=== PATIENT | female | born 1990 | race Caucasian/White ===

== ENCOUNTER 2017-12-02 07:49 | Emergency (ER) | payer BC ==
[~2017-12-02] VITALS: Ht 160 cm; Wt 74.8 kg
[~2017-12-02 07:49] MED LIST: VITAFOL-OB+DHA1 EACH PO
[2017-12-02] MEDS ORDERED: NUVARING VAGIN1 EACH VAGINAL (08:15)
== END 2017-12-02 12:10 | disposition home or self-care (01) ==
LOC: ED 07:49
DX: R10.9 Unspecified abdominal pain (principal); Z79.899 Other long term (current) drug therapy
CPT/HCPCS: 74177; 80053; 81001; 84703; 85025; 96360; 96361; 99284; J7030; Q9967

== ENCOUNTER 2023-04-02 14:25 | Inpatient (IN) | payer OTHER ==
--- NOTE | ~2023-04-02 | OR ---
[address] [address] Draft DATE OF OPERATION: 04/14/2023 SURGEON: Stephan Rashid DO PREOPERATIVE DIAGNOSES: 1. Intrauterine at 39 weeks gestation. 2. History of prior section. 3. Desires opportunistic bilateral salpingectomy. POSTOPERATIVE DIAGNOSES: 1. Intrauterine at 39 weeks gestation. 2. History of prior section. 3. Desires opportunistic bilateral salpingectomy. PROCEDURES PERFORMED: 1. Repeat low transverse delivery. 2. Opportunistic bilateral salpingectomy. BILINGUAL CUSTOMER SERVICE SPECIALIST: Bertha Early MD. ANESTHESIA: Spinal with postoperative TAP block. ESTIMATED BLOOD LOSS: 600 mL. COMPLICATIONS: None. DRAINS: Condon to gravity. SPECIMEN: Cord blood for routine analysis. FINDINGS: Delivery of viable female , 7 pounds 6 ounces with Apgars of 9 and 9 born in the AL position over a repeat low transverse hysterotomy. Clear of amniotic fluid. Normal uterus, tubes, and ovaries with minimal to no scarring of the abdomen or pelvis. PATIENT NAME: JAVI CAREY OPERATIVE REPORT DATE OF : [birth year] REPORT #: [id number] PHYSICIAN: STEPHAN RASHID) PCP: STEPHIE FINLEY MD REPORT IS CONFIDENTIAL AND NOT TO BE RELEASED WITHOUT AUTHORIZATION [address] [address] Draft INDICATIONS: Ms. Carey is a very pleasant 33-year-old, G2, P1, with intrauterine at 39 weeks gestation, who presents for repeat low transverse delivery with opportunistic bilateral salpingectomy. Risks, benefits, and alternatives were discussed in detail with the patient. The patient understands and wishes to proceed with the procedure and reaffirms her request for opportunistic salpingectomy. PROCEDURE IN DETAIL: The patient was taken to the operating room where a time-out was performed to confirm correct patient and correct procedure. Spinal anesthesia was adequately established. The patient was prepped and draped in the supine position with a bump under the right hip. Condon catheter was inserted and no preoperative heparin was indicated. She did receive Ancef 2 g preoperatively per SCIP protocol. Once spinal was noted to be adequate, a Pfannenstiel skin incision was made using a surgical scalpel through her prior scar. This was carried down to the fascia. The fascia was nicked in the midline. Fascial incision was extended bilaterally using curved Warren scissors. Fascia was grasped with Popeye's, elevated, and the underlying rectus muscle dissected off bluntly and sharply. The rectus was divided in the midline with sharp and blunt dissection. The peritoneum was entered bluntly. Peritoneal incision was extended cephalad caudad using sharp and blunt dissection. No significant adhesions were noted in the pelvis. An Juan self retractor was placed. The lower uterine segment identified. Hysterotomy was performed using a surgical scalpel. Amnion was ruptured for clear fluid. The surgeon's hand was placed in the uterine cavity. The head elevated into the maternal abdomen delivered with the assistance of fundal pressure. Nuchal cord x1 was identified and reduced without difficulty and the remainder of the delivered easily with the assistance of fundal pressure. was vigorous and cried upon delivery. Cord was doubly clamped and cut and the handed to the waiting pediatric team for further care. Cord blood was obtained for routine analysis. The placenta was manually expressed, intact with a centrally inserted three-vessel cord. The uterus was cleared of any remaining products of conception of clot and hysterotomy was repaired in two layers of 0 Monocryl. The first being a running locked layer and the second being a running imbricating layer in the vertical manner. A small amount of oozing was noted in the midline of the hysterotomy and this was repaired with a [id number]-ya-hyuhl with excellent hemostasis. The pelvis was irrigated and found to be hemostatic. Attention was turned to the opportunistic bilateral salpingectomy. The patient again reaffirmed her desire for this procedure. The left fallopian tube was grasped with Fidel, elevated, and dissected along the mesosalpinx using LigaSure device with excellent hemostasis. The tube was amputated at the cornu. Excellent hemostasis of the mesosalpinx was appreciated. The process was repeated on the right side without difficulty. After ensuring hemostasis bilaterally, the uterus was returned to the abdomen. The Juan retractor was removed and the lower uterine segment PATIENT NAME: JAVI CAREY OPERATIVE REPORT DATE OF : [birth year] REPORT #: [id number] PHYSICIAN: STEPHAN RASHID (ANNIE) DO PCP: STEPHIE FINLEY MD REPORT IS CONFIDENTIAL AND NOT TO BE RELEASED WITHOUT AUTHORIZATION [address] [address] Draft identified and noted to be hemostatic. The peritoneum was reapproximated using 2-0 Vicryl in a running nonlocked manner. Rectus was made hemostatic with judicious use of Bovie electrocautery and plicated in the midline with #0 Vicryl. The fascia was reapproximated using 0 Vicryl in a running nonlocked manner. Subcu was made hemostatic with judicious use of Bovie electrocautery after irrigation and reapproximated with 3-0 Vicryl. The skin was reapproximated using surgical ema. The uterus was Crede'd for scant amount of blood and the patient remained in the OR for postoperative TAP block per Anesthesia. Sponge, needle, and instrument count were correct x2 at the end the procedure. Dr. Early was present and participated in all portions of the procedure. DO TIGRE Jimenez/MODL /[id number] Copies: ~ PATIENT NAME: JAVI CAREY OPERATIVE REPORT DATE OF : [birth year] REPORT #: [id number] PHYSICIAN: STEPHAN RASHID DO (JD) PCP: STEPHIE FINLEY MD REPORT IS CONFIDENTIAL AND NOT TO BE RELEASED WITHOUT AUTHORIZATION
[~2023-04-02 14:25] MED LIST changes: +NUVARING VAGIN1 EACH VAGINAL
[2023-04-14 06:01] LABS: AMPHETAMINES, URINE NEGATIVE (NEGATIVE); BARBITURATES, URINE NEGATIVE (NEGATIVE); BENZODIAZEPINE, URINE NEGATIVE (NEGATIVE); BUPRENORPHINE, URINE NEGATIVE (NEGATIVE); CANNABINOID, URINE NEGATIVE (NEGATIVE); COCAINE, URINE NEGATIVE (NEGATIVE); ECSTASY, URINE NEGATIVE (NEGATIVE); FENTANYL, URINE NEGATIVE (NEGATIVE); METHADONE, URINE NEGATIVE (NEGATIVE); OPIATES, URINE NEGATIVE (NEGATIVE); OXYCODONE, URINE NEGATIVE (NEGATIVE); PHENCYCLIDINE, URINE NEGATIVE (NEGATIVE)
[2023-04-14 06:19] VITALS: BP 116/77
[2023-04-14 06:20] LABS: HEMATOCRIT 37.1 % (35.0-50.0); HEMOGLOBIN 12.9 g/dL (12.0-18.0); MCH 31.4 (27-36); MCHC 34.7 g/dl (30-36); MCV 90.6 fl (81-99); RBC 4.09 M/ul (4.3-5.7); RDW 13.1 (10.5-15.0)
[2023-04-14 06:52] LABS: ABO O
[2023-04-14 06:53] LABS: ANTIBODY SCREEN NEGATIVE; RH POSITIVE
[2023-04-14 09:05] VITALS: BP 107/63
--- NOTE | 2023-04-14 09:13 | NUR ---
04/14/23 0914 Sheba Devine 0834- PT ARRIVES TO ROOM 105 IN [facility]. PT IS ALERT AND ANSWERS QUESTIONS APPROPRIATELY. GOTTLIEB CATHETER IN PLACE DRAINING CLEAR YELLOW URINE. PT DENIES PAIN AND NAUSEA. LR WITH 20 UNITS OF PITOCIN INFUSING TO 20G IV TO RH. DRESSING IN PLACE TO LOW ABD, CDI. BREATHING EVEN AND NON LABORED, DENIES SOB. MONITORS IN PLACE. 0850- NO CHANGE IN PT STATUS, PT SEMI REYES POSITION. DENIES PAIN AND NAUSEA. NO DIZZINESS. VITAL SIGNS STABLE. LR WITH 20 UNITS OF PITOCIN INFUSING. NICOLE BROWN AT BEDSIDE, ASSISTING TO LATCH BABY TO BREAST. REPORTS AT BEDSIDE, ICE WATER PROVIDED. CARE OF PT TURNED OVER AT THIS TIME.
[2023-04-15 05:16] LABS: MCH 31.1 (27-36); MCHC 34.4 g/dl (30-36); MCV 90.4 fl (81-99); RBC 3.53 M/ul (4.3-5.7); RDW 12.9 (10.5-15.0)
--- NOTE | 2023-04-16 11:25 | PR ---
[facility] [address] [facility] [place], [place] [address] Signed PP Progress Notes Datetime Report Generated by CPN: 04/16/2023 11:24 SUBJECTIVE: [id number] Pain: Within Normal Limits Nausea/Vomiting: Denies Flatus: Yes Bowel Movement: No Vital Signs: [id number] Vital Signs: Reviewed; Within Normal Limits Cardiovascular: Normal Respiratory: Normal Abdomen/Uterus: Normal Lochia: Normal Vulva/Perineum: Not Done Breasts: Not Done CVA Tenderness: Normal Extremities: Normal Incision: Normal Progress: Normal Exam Comments: Fundus firm U-2 Incision healing well w/ ema in place IMPRESSION/PLAN/PROCEDURES: [id number] Impression: Normal Progression Plan: Discharge Procedures: None Progress Notes: Pt seen and examined. Doing well. Ambulating, voiding, and tolerating full diet. Pain and lochia minimal. . No fevers/chills. Edmond out early next week in the office. S/P bilateral salpingectomy for contraception. Reviewed instructions in detail. All questions answered. Signing Physician: Stephan Rashid DO Copies: ~ *Electronically Signed* 04/16/23 1124 STEPHAN RASHID (ANNIE) DO PATIENT NAME: JAVI CARPIO PROGRESS NOTE DATE OF : [birth year] PHYSICIAN: STEPHAN RASHID (JD) DO RPT #: [id number] REPORT IS CONFIDENTIAL AND NOT TO BE RELEASED WITHOUT AUTHORIZATION
--- NOTE | 2023-04-16 11:45 | PATH ---
[facility] [address], [place] [address] Signed SPECIMEN(S): A FALLOPIAN TUBES, BILATERAL SPECIMEN SOURCE: A. FALLOPIAN TUBES, BILATERAL FINAL PATHOLOGIC DIAGNOSIS: Fallopian tubes, bilateral, salpingectomy: - Fimbriated fallopian tube segments (two) with no significant pathologic changes BRP MICROSCOPIC EXAMINATION: Histologic sections of all submitted blocks are examined by light microscopy. These findings, together with the gross examination, support the pathologic diagnosis. GROSS DESCRIPTION: The specimen, labeled and designated "Miura, bilateral fallopian tubes," is received in formalin and consists of two undesignated fallopian tubes. Both show fimbria and violaceus and smooth serosa. The first tube measure 7.5 x 0.7 cm. The second fallopian tube measure 7.0 x 0.7 cm. Sectioning through both fallopian tubes is grossly unremarkable. Cassette Summary: (A1) first fallopian tube, livestock sales representative sections (A2) second fallopian tube, livestock sales representative sections JS (under the direct supervision of a pathologist) The Gross Description was prepared using a voice recognition system. The report was reviewed for accuracy; however, sound-alike word errors, addition and/or deletions may occur. If there is any question about this report, please contact Client Services. ADDITIONAL NOTES: Immunohistochemical and/or in situ hybridization studies if performed in this case included appropriate positive controls that reacted as expected. This test was developed and its performance characteristics determined by [facility]. It has not been cleared or approved by the U.S. Food and Drug Administration. The FDA has determined that such clearance or approval is not necessary. This test is used for clinical purposes. It should not be regarded as investigational or for research. [facility] is certified under the Clinical Laboratory Improvement PATIENT NAME: JAVI CARPIO PATHOLOGY DATE OF : [birth year] REPORT #: [id number] PHYSICIAN: FLORIAN PATHOLOGY PCP: STEPHIE FINLEY MD REPORT IS CONFIDENTIAL AND NOT TO BE RELEASED WITHOUT AUTHORIZATION [facility] [address] [place] [facility] [place], [place] [address] Signed Amendments of 1988 (CLIA) as qualified to perform high complexity clinical laboratory testing. PERFORMING LABORATORY: Technical component was performed by [facility], [address] [place] [address] (CLIA# [id number]). Professional interpretation was performed by [facility] - [facility], [facility] [address] [address] (CLIA#:[id number]). Diagnostician: Jignesh Burks MD Pathologist Electronically Signed 04/16/2023 Copies: ~ PATIENT NAME: JAVI CARPIO PATHOLOGY DATE OF : [birth year] REPORT #: [id number] PHYSICIAN: FLORIAN PATHOLOGY PCP: STEPHIE FINLEY MD REPORT IS CONFIDENTIAL AND NOT TO BE RELEASED WITHOUT AUTHORIZATION
== END 2023-04-16 12:20 | disposition home or self-care (01) | DRG 785 ==
LOC: FBC 04-13 07:30
PROVIDERS: ADMIT Obstetrics & Gynecology; ATTEND Obstetrics & Gynecology
PROC: 10D00Z1 Extraction of Products of Conception, Low, Open Approach (ICD-10-PCS; principal; 2023-04-14 07:30)
PROC: 0UB70ZZ Excision of Bilateral Fallopian Tubes, Open Approach (ICD-10-PCS; 2023-04-14 07:30)
DX: O34.211 Maternal care for low transverse scar from previous cesarean delivery (principal); Z3A.39 39 weeks gestation of pregnancy; Z37.0 Single live birth; O69.81X0 Labor and delivery complicated by cord around neck, without compression, not applicable or unspecified; O99.892 Other specified diseases and conditions complicating childbirth; M54.9 Dorsalgia, unspecified; Z30.2 Encounter for sterilization
CPT/HCPCS: 36415; 76942; 80307; 85027; 86850; 86900; 86901; A9270; J0131; J0690; J1100; J1650; J1885; J2001; J2371; J2405; J2590; J2795; J3010; J7121

== ENCOUNTER 2024-06-16 09:55 | Observation (INO) | payer OTHER ==
[~2024-06-16] VITALS: Ht 160 cm; Wt 86.2 kg
[2024-06-16 10:35] LABS: BILIRUBIN, URINE NEGATIVE (negative); BLOOD/HGB, URINE NEGATIVE (Negative); KETONE, URINE SMALL (Negative); LEUK ESTERASE, URINE NEGATIVE (negative); NITRITE, URINE NEGATIVE (negative)
[2024-06-16] MEDS ORDERED: ondansetron HCL 4 MG/2 ML VIAL IV ONE (10:45)
[2024-06-16 11:10] LABS: BASOPHILS 0.4 % (0-2); EOSINOPHILS 0.1 % (0-6); HEMATOCRIT 37.8 % (35.0-50.0); LYMPHOCYTES 9.1 % (24-44); MCH 30.1 (27-36); MCHC 34.4 g/dl (30-36); MCV 87.6 fl (81-99); MONOCYTES 4.6 % (0-12); NEUTROPHILS 85.8 % (39-80); PLATELET COUNT 209 K/uL (140-440); RBC 4.31 M/ul (4.3-5.7); RDW 12.8 (10.5-15.0)
[2024-06-16] MEDS ORDERED: DICYCLOMINE HCL 20 MG/2 ML VIAL IM ONE (11:15)
[2024-06-16] MEDS ORDERED: MAGNESIUM HYDROXIDE/AL HYDROX 30 ML CUP PO ONE (11:15)
[2024-06-16] MEDS ORDERED: MORPHINE SULFATE 4 MG/ML VIAL IV ONE ×2 (11:30→13:30)
[2024-06-16] MEDS ORDERED: SODIUM CHLORIDE 0.9% 1,000 ML IV PRN (11:30)
[2024-06-16 11:31] LABS: ALBUMIN/GLOBULIN RATIO 1.25 (1.1-2.4); ANION GAP 13.5 (7-21); BILIRUBIN, TOTAL 0.4 mg/dL (0.2-1.0); BUN/CREATININE RATIO 31.37 (6.0-28.6); CALCIUM 8.5 mg/dL (8.5-10.1); CREATININE, SERUM 0.51 mg/dL (0.55-1.02); POTASSIUM 3.5 mmol/L (3.5-5.1); PROTEIN, TOTAL 7.2 g/dL (6.4-8.2)
[2024-06-16] MEDS ORDERED: CEFAZOLIN SODIUM 2 GM/20 ML SYR IV ONE (13:00)
[2024-06-16] MEDS ORDERED: LACTATED RINGER'S 1,000 ML IV SCH ×2 (13:00→14:45)
[2024-06-16] MEDS ORDERED: metroNIDAZOLE/SODIUM CHLORIDE 500 MG/100 ML PIGGYBACK IV ONE (13:00)
[2024-06-16] MEDS ORDERED: ondansetron HCL 4 MG/2 ML VIAL ONE (14:16)
[2024-06-16] MEDS ORDERED: DEXAMETHASONE SOD PHOS 4 MG/ML VIAL ONE (14:16)
[2024-06-16] MEDS ORDERED: propofoL 200 MG/20 ML VIAL ONE (14:16)
[2024-06-16] MEDS ORDERED: MIDAZOLAM HCL 2 MG/2 ML VIAL ONE (14:16)
[2024-06-16] MEDS ORDERED: fentaNYL citrate 100 MCG/2 ML VIAL ONE (14:16)
[2024-06-16] MEDS ORDERED: SUGAMMADEX SODIUM 200 MG/2 ML ML ONE (14:16)
[2024-06-16] MEDS ORDERED: KETOROLAC TROMETHAMINE 30 MG/ML VIAL ONE (14:16)
[2024-06-16] MEDS ORDERED: ROCURONIUM BROMIDE 50 MG/5 ML SYR ONE (14:16)
[2024-06-16] MEDS ORDERED: LIDOCAINE HCL 2% 5 ML SDV ONE (14:19)
[2024-06-16] MEDS ORDERED: FAMOTIDINE 20 MG/ 2 ML VIAL IV SCH (14:37)
[2024-06-16] MEDS ORDERED: KETOROLAC TROMETHAMINE 30 MG/ML VIAL IV PRN (14:45)
[2024-06-16] MEDS ORDERED: ondansetron HCL 4 MG/2 ML VIAL IV PRN ×2 (14:45→15:00)
[2024-06-16] MEDS ORDERED: IBLOOD GLUCOSE TEST STRIP 1 EA TEST VI PRN (15:00)
[2024-06-16] MEDS ORDERED: fentaNYL citrate 50 MCG/ML SDV IV PRN (15:00)
[2024-06-16] MEDS ORDERED: MIDAZOLAM HCL 2 MG/2 ML VIAL IV PRN (15:00)
[2024-06-16] MEDS ORDERED: NALOXONE HCL 0.4 MG SYR IV PRN (15:00)
[2024-06-16] MEDS ORDERED: HYDROmorphone HCL 1 MG/ML SYR IV PRN (15:00)
--- NOTE | 2024-06-16 15:08 | NUR ---
LEFT HAND IV REMOVE, PT REPORTS PAIN AND SMALL AMOUNT OF SWELLING NOTED TO LEFT HAND. ULTRASOUND IV PLACED IN RIGHT FOREARM 20G X 2 INCH. PT DENIES CONCERNS.
--- NOTE | 2024-06-16 15:26 | NUR ---
UR CLINICAL REVIEW: MIGUEL (ENCOUNTER DISCHARGED 06/16/24), MEETS OBS FOR APPENDICITIS POSTIVE CT, IV ANTIBIOTICS, IV FLUIDS, IV ANALGESICS [facility] OBS 06/16/2024 @ 1437 ORDER MATCHES REG AUTH PENDING. WILL SEND CLINICALS. PLAN TO DC TO HOME WHEN MEDICALLY CLEARED. 06/17/2024
--- NOTE | 2024-06-16 16:36 | NUR ---
06/16/24 1636 Irene López 1615-PT ARRIVES TO PACU VIA STRETCHER, PT LAYING SEMI FOWLERS, PT SHAKING, UNABLE TO OBTAIN BP ALL VSS ON 6L VIA MASK AND OPA IN PLACE, RR EVEN AND UNLABORED. 1616-PT AWAKENS ON OWN, DISORIENTED BUT ABLE TO FOLLOW COMMANDS, OPA REMOVED. VSS ON 6L VIA MASK. PT RESTING W/ EYES CLOSED, RR EVEN AND UNLABORED. 1625-PT TITRATED TO RA, VS REMAIN STABLE, PT DENIES PAIN OR NAUSEA. 1630- AT BEDSIDE TO DISCUSS PROCEDURE RESULTS AND PLAN OF CARE W/ PT, ALL QUESTIONS ANSWERED. PT DENIES PAIN OR NAUSEA. SHAKINESS HAS IMPROVED, VERY MINIMAL.
[2024-06-16] MEDS ORDERED: ACETAMINOPHEN 500 MG TAB PO PRN (16:45)
[2024-06-16] MEDS ORDERED: IBUPROFEN 600 MG TAB PO PRN (16:45)
[2024-06-16] MEDS ORDERED: OXYCODONE/APAP 7.5/325 TAB PO PRN (16:45)
--- NOTE | 2024-06-16 16:45 | NUR ---
PT ARRIVES TO FLOOR IN STRETCHER WITH [facility] RN. PT TRANSFERS VIA DRAW SHEET INTO HOSPITAL BED. VS AND WT OBTAINED. PT REQUESTING TO USE THE RESTROOM. THIS RN AND STEPHANIE KELLER ASSIST PT TO SIT ON EDGE OF BED AND AMBULATE TO RESTROOM. PT REPORTS BRIEF EPISODE OF NAUSEA, AND QUICKLY RECOVERS. PT TOLERATES AMBULATING WELL. PT SITTING ON TOILET, EDUCATED ON USING CALL CORD, VERBALIZES UNDERSTANDING. PT DB ALSO REMAINS WITH PT IN RESTROOM.
[2024-06-16 16:58] VITALS: BP 107/66
[2024-06-16] MEDS ORDERED: CYCLOBENZAPRINE10 MG PO (17:17)
[2024-06-16] MEDS ORDERED: MELOXICAM15 MG PO (17:23)
--- NOTE | 2024-06-16 17:42 | NUR ---
ADMISSION COMPLETE. PT PREVIOUSLY RETURNED TO BED AFTER SMALL VOID. SCDs IN PLACE, IVF INFUSING TO R FOREARM WNL. PT LUNG SOUNDS CLEAR THROUGHOUT, HEART SOUNDS REGULAR. BOWEL TONES ACTIVE IN ALL FOUR QUADRANTS, ABDOMEN IS MILDLY DISTENDED AND TENDER TO RLQ. PT REPORTS PAIN IS 6/10, PRN PAIN MEDICATION ADMINISTERED. PT DRINKS ICE WATER AND EATS A FEW SALTINE CRACKERS. TOLERATES WELL. PT REPORTS SHE FEELS THOUGH SHE COULD VOID AGAIN. PT TO EDGE OF BED AND AMBULATING WITH SBA ONLY. PT STEADY ON HER FEET, FULLY ALERT AND ORIENTED. PT AMBULATES WITH IV PUMP TO RESTROOM AND ON TO TOILET TO VOID. PT EDUCATED MODERN GREEK STUDIES PROFESSOR CORD USE, VERBALIZES UNDERSTANDING, PTs REMAINS PRESENT IN ROOM.
[2024-06-16 17:59] VITALS: BP 114/70
[2024-06-16] MEDS ORDERED: SEVOFLURANE 250 ML BTL INH ONE (18:05)
[2024-06-16 18:07] VITALS: BP 114/70
--- NOTE | 2024-06-16 18:07 | NUR ---
PT RESTING IN BED. VITALS AND I'S AND O'S COMPLETE. PT S/O AT BEDSIDE. PT VOIDED 300 ML OF CLEAR, YELLOW URINE. PT ICE WATER REFRESHED. PT DENIES ANY NEEDS. CALL LIGHT IN REACH
[2024-06-16] MEDS ORDERED: IBUPROFEN600 MG PO (18:44)
[2024-06-16] MEDS ORDERED: ACETAMINOPHEN500 MG PO (18:45)
[2024-06-16] MEDS ORDERED: ONDANSETRON ODT8 MG PO (18:45)
[2024-06-16] MEDS ORDERED: OXYCODON-ACETA1 EAC2 PO (18:45)
[2024-06-16 18:53] VITALS: BP 113/65
--- NOTE | 2024-06-16 18:54 | NUR ---
VS TAKEN AND RECORDED. PT REQUESTING TO USE RESTROOM. UNHOOKED FROM SCDs AND CPOX, IV POLE UNPLUGGED. PT AMBULATES INDEPENDENTLY INTO RESTROOM. PT VERBALIZES UNDERSTANDING OF HOW TO USE CALL CORD IF NEEDED.
--- NOTE | 2024-06-16 19:25 | NUR ---
REPORT REC'D FROM STEPHANIE LEON. PT RESTING COMFORTABLY IN BED, SPOUSE AT BEDSIDE. PT REPORTS PAIN TO RUQ, ENCOURAGED AMBULATION AND POSITION CHANGES. CALL VILLA IN REACH, BED IN LOW POSITION AND LOCKED, SIDERAILS UP X2, IV SITE PATENT,LR INFUSING AT 85ML/HR
[2024-06-16] MEDS ORDERED: FAMOTIDINE 20 MG TAB PO SCH (21:00)
[2024-06-16 21:32] VITALS: BP 105/58
--- NOTE | 2024-06-16 21:34 | NUR ---
IMMIGRATION PARALEGAL OBTAINED VITALS AND I&O. PT STATES NO NEEDS AT THIS TIME. PROVIDED WITH BLANKETS AND PILLOW FOR COUCH. PT CALL LIGHT WITHIN REACH.
[2024-06-16] MEDS ORDERED: metroNIDAZOLE/SODIUM CHLORIDE 500 MG/100 ML PIGGYBACK IV SCH (22:00)
[2024-06-16] MEDS ORDERED: CEFAZOLIN SODIUM 2 GM/20 ML SYR IV SCH (22:00)
[2024-06-16 22:17] VITALS: BP 105/58
--- NOTE | 2024-06-16 23:05 | NUR ---
PT RESTING QUIETLY. SPOUSE ON SOFA BED. CALL VILLA IN REACH, BED LOW POSITION, SR UP X2. NO ACUTE DISTRESS NOTED
--- NOTE | 2024-06-17 00:16 | NUR ---
PT PLEASANT AND COOPERATIVE WITH CARE T/O SHIFT. MEDICATED X1 FOR PAIN. PT NOTED UP AND AMBULATING WITH SPOUSE. PT ANTICIPATED TO DC IN AM. CALL VILLA IN REACH, BED LOW POSITION, SIDERAILS UP X 2
[2024-06-17 01:44] VITALS: BP 94/56
--- NOTE | 2024-06-17 01:44 | NUR ---
GOT REPORT FROM LINE SERVICE SUPERVISOR NURSE.
--- NOTE | 2024-06-17 01:53 | NUR ---
MEAT COUNTER CLERK OBTAINED VITALS AND I&O. PT UP TO BATHROOM. OUTPUT NOTED. PT BACK IN BED AND STATES NO FURTHER NEEDS AT THIS TIME. CALL LIGHT WITHIN REACH.
--- NOTE | 2024-06-17 02:07 | NUR ---
INTO CHECK ON PATIENT. SHE IS AWAKE SHE FELT SHE SLEPT VERY HARD AT FIRST AND WOKE UP HOT AND HASNT BEEN ABLE TO GO BACK TO SLEEP YET. DENIES NEEDING A FAN. PAIN CONTROLLED. ICE GIVEN IN WATER CUP. AT BED SIDE. CALL LIGHT WITHIN REACH. PATIENT WATCHING TV. PATIENT HAS IV FLUIDS RUNNING. BED IN LOW POSITION. DENIES ANY OTHER NEEDS AT THIS TIME.
--- NOTE | 2024-06-17 03:23 | NUR ---
PATIENT IS CURRENTLY ASLEEP ON HER BACK. REGULAR RESPIRATIONS AND RATE NOTED.
[2024-06-17 05:41] VITALS: BP 110/67
[2024-06-17 05:45] VITALS: BP 110/67
--- NOTE | 2024-06-17 05:45 | NUR ---
PATIENT ANTIBIOTICS ARE RUNNING VIA IV. PATIENT IS AWAKE AND READY TO GO HOME WHEN SHE CAN. PAIN MEDICATION GIVEN PATIENT 07/29 AND WILL BE GETTING UP AND MOVING AROUND MORE THIS MORNING TO GO HOME. BOYFRIEND AT BEDSIDE. TV ON,CALL LIGHT WITHIN REACH. DENIES ANY FURTHER NEEDS AT THIS TIME.
--- NOTE | 2024-06-17 07:20 | NUR ---
pt resting in bed. present at bedside. pt denies further needs at this time. call light in reach.
--- NOTE | 2024-06-17 07:51 | NUR ---
RECEIVED REPORT FROM NIGHT RN. PT RESTING WHEN ENTERED ROOM, SLEEPING ON COUCH. IV FLUIDS INFUSING, PT SALINE LOCKED THIS MORNING. PAIN IS CONTROLLED SHE STATES NOW AT 4, DID HAVE ALITTLE NAUSEA WITH TAKING MEDS ON EMPTY STOMACH, WAS ALREADY GIVEN SALTINE CRACKS, RYANNE GIVEN THIS MORNING WELL. LAP SITES HAVE SCANT DRAINAGE, BUT INTACT. BT+, PT REPORTS PASSING SOME FLATUS THROUGHOUT NIGHT AND IN THE MORNING. ALL PT CARE NEEDS MET, CALL LIGHT WITHIN REACH. PT WOULD LIKE TO DISCHARGE AFTER BREAKFAST THIS MORNING. PHARMACY NOTIFIED SO THEY CAN REVIEW MEDS WITH PATIENT. DISCHARGE INSTRUCTIONS REVIEWED WITH PATIENT, ADVISED ALSO TO MAKE SURE SHE TAKES SOMETHING FOR BOWELS IF SHE IS GOING TO TAKE HER NARCOTICS FOR PAIN TO PREVENT CONSTIPATION. ALSO IN ROOM WHEN REVIEWED DISCHARGE INSTRUCTIONS, NO LIFTING OVER 20LBS. UNDERSTANDS AND PT VERBALIZES INSTRUCTIONS.
--- NOTE | 2024-06-17 08:13 | NUR ---
PT STATE THE PAIN MEDS DONT MAKE HER FEEL GOOD, ALITTLE NAUSEATED BUT MORE A FUNNY FEELING, SHE WAS INSTRUCTED SHE CAN ALWAYS CUT THEM IN HALF AND TAKE 1/2 THE DOSE IF IT IS TOO MUCH. TAKING IT ALONG WITH IBUPROFEN/TYLENOL CAN HELP TAKE THE EDGE OFF THE PAIN. PT UNDERSTANDS AND AGREES.
--- NOTE | 2024-06-17 08:54 | NUR ---
PT IN BED EATING MEAL. AT BEDSIDE. PT ASKING WHEN PHARMACY IS COMING IN. RN NOTIFIED. DENIES FURTHER NEEDS. CALL LIGHT IN REACH
[2024-06-17 09:10] VITALS: BP 104/65
--- NOTE | 2024-06-18 12:30 | OR ---
[facility] [address] [place], [place] [address] Signed DATE OF OPERATION: 06/16/2024 SURGEON: Nayely Hadley MD PREOPERATIVE DIAGNOSIS: Acute suppurative appendicitis. POSTOPERATIVE DIAGNOSIS: Acute suppurative appendicitis. PROCEDURE: Laparoscopic appendectomy. ANESTHESIA: General endotracheal; Savannah Carmen CRNA and local 0.25% Marcaine with epinephrine 10 mL. INDICATION: This 34-year-old white woman is seen through the emergency room with complaints of lower pelvic pain. Pain began earlier in the day today beginning in the mid abdomen and now more in the pelvis and more dominantly on the right side. Clinical examination shows white count of 11.6. CT scan shows findings highly suggestive of acute appendicitis. She has been fluid resuscitated, given intravenous antibiotic Ancef and Flagyl and now to undergo appendectomy preferred by a laparoscopic approach. The risk of bleeding, infection, need for open procedure and other unforeseen complications related to appendectomy were reviewed with her. She understands and wished to proceed. FINDINGS: Indeed suppurative appendicitis was noted. The ileum was normal. The gallbladder was normal as was the liver. Appendectomy was performed without problem. She tolerated the procedure well. DESCRIPTION OF PROCEDURE: The patient was brought to the operating room and given a general endotracheal anesthetic. Preoperative antibiotic Ancef and Flagyl had been given already. Sequential compression device stockings were used. After satisfactory general endotracheal anesthesia, the abdomen was prepared with a chlorhexidine solution and draped sterilely. An infraumbilical incision was made and using open Jaiden cannula technique pneumoperitoneum was achieved to a level of 14 mmHg of carbon dioxide gas. Intra-abdominal inspection showed no sign of ascites or carcinomatosis. The appendix Electronically Signed By: NAYELY HADLEY MD 06/18/24 1230 PATIENT NAME: JAVI CARPIO OPERATIVE REPORT DATE OF : [birth year] REPORT #: [id number] PHYSICIAN: NAYELY HADLEY MD PCP: STEPHIE FINLEY MD REPORT IS CONFIDENTIAL AND NOT TO BE RELEASED WITHOUT AUTHORIZATION [facility] [address] [place], [place] [address] Signed was not initially visualized. The gallbladder appeared normal. The liver was normal. An additional 12 mm epigastric port was placed and camera replaced to that site. On single hand manipulation, the cecum was easily rolled over showing a suppurative appendix. The antimesenteric fat pad of Treves and terminal ileum all appeared normal. The right lower quadrant 5 mm port was placed and using two hand manipulation, the appendix could be defined from the surrounding tissue. It appeared to be somewhat fused posteriorly and anteriorly. The fusion site was incised with blunt and electrocautery dissection ultimately creating a window between the appendix and the cecum. Using an Endo-AMELIA stapling device, the appendix was transected flushed with the cecum. Further manipulation allowed for isolation of the appendiceal pedicle in the appendiceal mesentery. This was ultimately secured with a stapling device as well. The appendix was placed in an endobag and extracted through the infraumbilical port site. Examination of the staple line showed it to be hemostatic. Irrigation was undertaken and once the irrigation fluid was clear, inspection was undertaken showing no sign of bleeding or other problem. The trocars were removed under direct visualization showing no sign of bleeding. The infraumbilical fascial incision was reapproximated with interrupted 0 Vicryl suture. 10 mL of 0.25% Marcaine with epinephrine was injected locally. The skin was closed with interrupted 3-0 Vicryl. Steri-Strips were applied. She was ultimately extubated and transferred to the recovery room in good condition having suffered no complication. Sponge, needle, and instrument counts reported as correct x3. MD ENMANUEL Mendez/LYNETTEL /[id number] cc: . Copies: ~ Electronically Signed By: NAYELY HADLEY MD 06/18/24 1230 PATIENT NAME: JAVI CARPIO OPERATIVE REPORT DATE OF : [birth year] REPORT #: [id number] PHYSICIAN: NAYELY HADLEY MD PCP: STEPHIE FINLEY MD REPORT IS CONFIDENTIAL AND NOT TO BE RELEASED WITHOUT AUTHORIZATION
--- NOTE | 2024-06-18 12:30 | HP ---
[facility] [address], [place] [address] Signed ADMISSION DATE: 06/16/2024 REASON FOR ADMISSION: Probable appendicitis. HISTORY OF PRESENT ILLNESS: This 34-year-old white woman is accompanied by her fiance. She presents to the emergency room where she was evaluated by Dr. Mckenzie with complaints of abdominal pain. A CT scan of the abdomen was performed which shows high probability of acute appendicitis. Clinical examination is supportive of that as well. Her symptoms began this morning, mostly in the mid abdomen, now in the lower abdomen most dominantly in the right lower quadrant. She has had associated nausea. No actual vomiting. PAST MEDICAL HISTORY: Notable for x2. MEDICATIONS: She takes no medications on a routine basis. She does take control method (NuvaRing vaginal). 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 REVIEW OF SYSTEMS: She denies any shortness of breath or chest pain. She had no dysphagia or dysuria. Pain is mostly in the lower abdomen, poorly localized but predominantly on the right side. PHYSICAL EXAMINATION: GENERAL: Pleasant white woman who looks to be nontoxic. VITAL SIGNS: Temperature is 98.4, pulse 77, respirations 16, blood pressure 120/74. NECK: Trachea is midline. Mucous membranes reasonably moist. CHEST: Clear. HEART: Regular without murmur. ABDOMEN: Nondistended. Rovsing sign is positive. There is tenderness at McBurney's point, which is significant. EXTREMITIES: Show no clubbing, cyanosis, or edema. Electronically Signed By: NAYELY HADLEY MD 06/18/24 1230 PATIENT NAME: JAVI CARPIO HISTORY AND PHYSICAL DATE OF : [birth year] REPORT #: [id number] PHYSICIAN: NAYELY HADLEY MD PCP: STEPHIE FINLEY MD REPORT IS CONFIDENTIAL AND NOT TO BE RELEASED WITHOUT AUTHORIZATION [facility] [address], [place] [address] Signed LABORATORY DATA: Lab studies shows white count of 11.7, hematocrit 37.8, platelets 209,000 Chem profile is essentially normal, creatinine 0.51. Liver enzymes are normal. Beta HCG is negative. UA showed small amount of ketones, otherwise normal. I have reviewed the CT scan in detail. I cannot discern the appendix necessarily. The patient has been given Flagyl and Ancef antibiotics at this time. ASSESSMENT: The patient has acute appendicitis based on clinical and radiographic criteria. I discussed the pathophysiology of this problem with the patient and her fiance who attends to her. I have recommended a laparoscopic appendectomy, possible open procedure. I did discuss nonoperative methods which I would not be in favor of due to the high rate of recurrence. They were discussed, however. She would prefer an operative approach as well. PLAN: We will schedule for laparoscopic appendectomy today. Depending on findings, and so forth of the indicated procedure may be required including ovarian cystic resection, etc. Her last menstrual period was over a week ago and I think the chance of the cyst is quite low. MD ENMANUEL Mendez/LYNETTEL /[id number] cc: Dr. Magaly Che Copies: ~ Electronically Signed By: NAYELY HADLEY MD 06/18/24 1230 PATIENT NAME: JAVI CARPIO HISTORY AND PHYSICAL DATE OF : [birth year] REPORT #: [id number] PHYSICIAN: NAYELY HADLEY MD PCP: STEPHIE FINLEY MD REPORT IS CONFIDENTIAL AND NOT TO BE RELEASED WITHOUT AUTHORIZATION
--- NOTE | 2024-06-21 11:01 | PATH ---
[facility] [address] [facility] [place], [place] [address] Signed SPECIMEN(S): A APPENDIX SPECIMEN SOURCE: A. APPENDIX CLINICAL HISTORY: Abdominal pain, acute appendectomy FINAL PATHOLOGIC DIAGNOSIS: Appendix, appendectomy: - Morphologic features of acute appendicitis. NA MICROSCOPIC EXAMINATION: Histologic sections of all submitted blocks are examined by light microscopy. These findings, together with the gross examination, support the pathologic diagnosis. GROSS DESCRIPTION: The specimen, labeled and designated "rosie Carey," is received in formalin and consists of Specimen: Appendix with mesoappendix. Dimensions: 8.5 x 3.5 x 1.5 cm. Serosa: Red-brown to pink-neff. Defect: Not grossly identified. Inking: Staple line is inked Blue. Mucosa: Red-brown to pink-neff. Fecalith: Not grossly identified. Additional: None. [employer] sections are submitted in (A1). VB (under the direct supervision of a pathologist) The Gross Description was prepared using a voice recognition system. The report was reviewed for accuracy; however, sound-alike word errors, addition and/or deletions may occur. If there is any question about this report, please contact Client Services. ADDITIONAL NOTES: Immunohistochemical and/or in situ hybridization studies if performed in this case included appropriate positive controls that reacted as expected. This test was developed and its performance characteristics determined by [facility]. It has not been cleared or PATIENT NAME: JAVI CAREY [facility] DATE OF : [birth year] REPORT #: [id number] PHYSICIAN: [facility] PCP: STEPHIE FINLEY MD REPORT IS CONFIDENTIAL AND NOT TO BE RELEASED WITHOUT AUTHORIZATION [facility] [address] [place] [id number] Signed approved by the U.S. Food and Drug Administration. The FDA has determined that such clearance or approval is not necessary. This test is used for clinical purposes. It should not be regarded as investigational or for research. [facility] is certified under the Clinical Laboratory Improvement Amendments of 1988 (CLIA) as qualified to perform high complexity clinical laboratory testing. PERFORMING LABORATORY: Professional interpretation was performed by [facility], [address] [place] [address] (CLIA#: [id number]). Diagnostician: Sonja Al MD Pathologist Electronically Signed 06/21/2024 Copies: ~ PATIENT NAME: JAVI CAREY PATHOLOGY DATE OF : [birth year] REPORT #: [id number] PHYSICIAN: [facility] PCP: STEPHIE FINLEY MD REPORT IS CONFIDENTIAL AND NOT TO BE RELEASED WITHOUT AUTHORIZATION
== END 2024-06-17 09:12 | disposition home or self-care (01) ==
LOC: ED 09:55 → MS 14:54
PROVIDERS: Emergency Medicine; ADMIT Surgery; ATTEND Surgery
PROC: 0DTJ0ZZ Resection of Appendix, Open Approach (ICD-10-PCS; principal; 2024-06-16 14:15)
DX: K35.30 Acute appendicitis with localized peritonitis, without perforation or gangrene (principal)
CPT/HCPCS: 00840; 36415; 74177; 80053; 81003; 83690; 84703; 85025; 96360; 96361; 96374; 96375; 96376; 99285-25; A9270; J0500; J0690; J1100; J1885; J2003; J2250; J2270; J2405; J2704; J3010; J3490; J7030; J7121; Q9967

== ENCOUNTER 2025-02-23 09:27 | Emergency (ER) | payer OTHER ==
[~2025-02-23] VITALS: Ht 160 cm; Wt 79.4 kg
[~2025-02-23 09:27] MED LIST changes: +ACETAMINOPHEN500 MG PO; +CYCLOBENZAPRINE10 MG PO; +IBUPROFEN600 MG PO; +MELOXICAM15 MG PO; +ONDANSETRON ODT8 MG PO; +OXYCODON-ACETA1 EAC2 PO
[2025-02-23] MEDS ORDERED: WEGOVY1.7 MG/0.7 SUB-Q (09:50)
[2025-02-23] MEDS ORDERED: KETOROLAC TROMETHAMINE 15 MG/ML VIAL IV ONE (10:00)
[2025-02-23 10:02] LABS: BASOPHILS 0.6 % (0.1-1.2); EOSINOPHILS 0.9 % (0.7-5.8); LYMPHOCYTES 35.9 % (19.3-51.7); MCH 30.5 PG (25.6-32.2); MCHC 34.6 g/dL (32.2-35.5); MCV 88.0 fL (79.4-94.8); MONOCYTES 8.6 % (4.7-12.5); NEUTROPHILS 53.9 % (34.0-71.1); RBC 4.43 M/uL (3.93-5.22)
[2025-02-23 10:23] LABS: ALT (SGPT) 18.0 U/L (14-59); AST (SGOT) 17.0 U/L (15-37); GLOMERULAR FILTRATION RATE,EST 118.0 mL/min (>60); PROTEIN, TOTAL 7.7 g/dL (6.4-8.2); UREA NITROGEN 16.0 mg/dL (7-18)
[2025-02-23 10:26] LABS: BLOOD/HGB, URINE NEGATIVE (Negative); KETONE, URINE NEGATIVE (Negative); LEUK ESTERASE, URINE NEGATIVE (negative); NITRITE, URINE NEGATIVE (negative)
[2025-02-23 12:43] VITALS: BP 105/76
== END 2025-02-23 12:44 | disposition home or self-care (01) ==
LOC: ED 09:27
PROVIDERS: Emergency Medicine
DX: N83.201 Unspecified ovarian cyst, right side (principal); N83.8 Other noninflammatory disorders of ovary, fallopian tube and broad ligament; Z79.899 Other long term (current) drug therapy
CPT/HCPCS: 36415; 74177; 76830; 76856; 80053; 81003; 83690; 84703; 85025; 96374; 99284-25; J1885; Q9967